=== PATIENT | female | born 1980 | race Caucasian/White ===

== ENCOUNTER 2019-08-16 14:59 | Emergency (ER) | payer MEDICAID, SELFPAY ==
[2019-03-14 15:58] VITALS: BMI 34.7
[2019-08-16 15:03] VITALS: BP 139/82; PULSE 81; RESP 16; TEMP 36.9; O2SAT 98; BMI 36.1
--- NOTE | 2019-08-16 15:05 | EKG12_ITS ---
Test Reason : CP Blood Pressure : / mmHG Vent. Rate : 074 BPM Atrial Rate : 074 BPM P-R Int : 164 ms QRS Dur : 094 ms QT Int : 384 ms P-R-T Axes : 052 049 023 degrees QTc Int : 426 ms Normal sinus rhythm Incomplete right bundle branch block Borderline ECG Confirmed by DAMIEN SANFORD, NGUYEN ([id number]), film and video editor ARYAN PARKS ([id number]) on 08/20/2019 10:52:31 AM Referred By: JEFF/STEFANY Confirmed By:NGUYEN QUEZADA MD
--- NOTE | 2019-08-16 15:05 | RAD_ITS ---
STUDY: X-RAY CHEST REASON FOR EXAM: Female, 39 years old. Chest pain. TECHNIQUE: PA and lateral views of the chest. COMPARISON: None. FINDINGS: The lungs are clear and expanded. Scattered calcified granulomas. There is no demonstrated pleural abnormality. Normal size heart. Normal mediastinum and craig. Normal visualized pulmonary arteries. Normal visualized aortic arch and descending thoracic aorta. There are mild degenerative changes of the visualized thoracic spine. Normal visualized ribs, clavicles, and shoulders. There is no demonstrated abnormality of the visualized soft tissue structures of the upper abdomen. RAD/Chest PA and Lateral IMPRESSION: Normal x-ray examination of the chest. Electronically Signed: Joshua Murcia, at 15:34 EDT , Service support ,
[2019-08-16 15:19] LABS: Absolute Lymphocyte Count 2.32 X10^3/uL (0.83-4.51); Absolute Neutrophil Count 7.7 X10^3/uL (2.0-7.7); Basophil# 0.04 X10^3/uL; Basophil% 0.4 % (0-1); Eosinophil# 0.14 X10^3/uL; Eosinophils% 1.3 % (0-5); Hematocrit 44.6 % (37-47); Hemoglobin 14.7 g/dL (12.0-15.0); Lymphocyte # 2.32 X10^3/ul (4.0); Lymphocyte % 21.1 % (19-41); Mean Corpuscular Hgb 29.4 pg (27.0-32.0); Mean Corpuscular Volume 89.2 fL (81-99); Mean Platelet Vol. 9.9 fl (6.2-12.0); Monocyte# 0.78 X10^3/uL; Monocyte% 7.1 % (0-10); NRBC Flagged by Analyzer 0 % (0-5); Neutrophil # 7.71 X10^3/uL (2.7-7.7); Neutrophil % 69.9 % (47-70); Platelet Count 251 K/mm3 (150-450); RBC Distribution Width CV 12.2 % (11.6-14.6); RBC Distribution Width SD 39.6 fl (35.1-43.9)
[2019-08-16 15:35] LABS: Anion Gap 6 (5-15); BUN 12 mg/dL (7-18); Calcium,Total 9.2 mg/dL (8.5-10.1); Chloride 105 mmol/L (98-107); EST Glomerular Filtration Rate 65 mL/min (>60); Est Glom Filt Rate - Afr Amer 79 mL/min (>60); Estimated Creatinine Clearance 70.71 ml/min; Glucose 137 mg/dL (74-106); Potassium 3.7 mmol/L (3.5-5.1); Sodium Level 137 mmol/L (136-145)
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
[2019-08-16] MEDS: Aspirin 81 MG TAB.CHEW 324 MG PO (16:32)
[2019-08-16 17:03] LABS: Bacteria 0 SEEN /hpf (None Seen); Mucous, Urine 0 SEEN /hpf (<or=2+); Red Blood Cells-Urine 0 SEEN /hpf (0-5)
[2019-08-16] MEDS: Lidocaine 5% Patch 1 PATCH TOPICAL (17:07)
[2019-08-16 17:16] LABS: Color, Urine Yellow (Yellow); Glucose, Dipstick Normal (Normal); Ketone-Dipstick Negative (Negative); Leukocyte Esterase-Dipstick 25 /ul (Negative); Nitrite-Dipstick Negative (Negative); Occult Blood-Urine Negative /ul (Negative); Protein-Dipstick Negative (Negative); Specific Gravity, Urine 1.015 (1.002-1.030); Urine Bilirubin Dipstick Negative (Negative); Urine Clarity Clear (Clear); Urine Urobilinogen Normal (Normal); Urine pH 6.5 (5.0 - 8.0)
[2019-08-16 17:23] LABS: Internal QC Validated? YES +Cl - CLEAR BKGD; Pregnancy, Urine Negative Negative
[2019-08-16 17:25] LABS: Squamous Epithelial Cells - UA 0-5 SEEN /hpf (5-10); White Blood Cells 0-5 SEEN /hpf (0-5)
[2019-08-16] MEDS: Ondansetron ODT 4 MG Tablet PO (17:32)
== END 2019-08-16 17:37 | disposition home or self-care (01) ==
PROVIDERS: Emergency Provider Emergency Medicine
DX: M54.9 Dorsalgia, unspecified (principal); R11.0 Nausea; F41.9 Anxiety disorder, unspecified; I25.10 Atherosclerotic heart disease of native coronary artery without angina pectoris; I25.2 Old myocardial infarction; F17.200 Nicotine dependence, unspecified, uncomplicated
CPT/HCPCS: 71046; 80048; 81001; 81025; 84484; 85025; 93005; 99285; A4216

== ENCOUNTER 2025-01-08 12:47 | Emergency (ER) | payer MEDICAID, SELFPAY ==
[2025-01-08 12:48] VITALS: BP 148/93; PULSE 82; RESP 14; TEMP 37.2; O2SAT 98; BMI 35.5
--- NOTE | 2025-01-08 13:34 | EKG12_ITS ---
Test Reason : NUMBNESS/TINGLING Blood Pressure : */* mmHG Vent. Rate : 58 BPM Atrial Rate : 58 BPM P-R Int : 172 ms QRS Dur : 94 ms QT Int : 424 ms P-R-T Axes : 12 -6 1 degrees QTcB Int : 416 ms Sinus bradycardia Incomplete right bundle branch block Borderline ECG Confirmed by DAMIEN SANFORD, NGUYEN ([id number]), primer expeditor and drier ARYAN PARKS ([id number]) on 01/09/2025 8:48:15 AM Referred By: Confirmed By: NGUYEN QUEZADA MD
--- NOTE | 2025-01-08 13:51 | EDS_ITS ---
HPI History of Present Illness Chief Complaint: Numb/Ting Informant: patient Onset/Context/Timing Onset: Weeks (2 weeks intermittent comes and goes.) Current Severity: Mild Maximum Severity: Mild Narrative Narrative: 45-year-old female past medical history of a prior ectopic and hypertension. Prior cholecystectomy and appendectomy. States for the last 2 weeks she has had intermittent right cheek tingling. No prior history. No trouble with her vision or speech. No trouble moving arms and legs. States at times she feels like she has head pressure. She also states that she also at times has a tingling in her right arm. Denies head trauma. No history of stroke or mini stroke. Prior similar symptoms: No Recent Illness/Hospitalization: No PFSH PFSH Medical History C SECTION x4 2 MISCARRIAGES TUBAL AND HEMORRHAGED Home Medications ?Medication ?Instructions ?Recorded ?Last Taken ?Type bupropion HCl 150 mg 24 hr tablet, 150 mg PO QAM #30 t abs 03/14/19 Unknown Rx extended release ondansetron 4 mg disintegrating 4 mg PO Q8H PRN PRN Na usea #10 tabs 08/16/19 Unknown Rx tablet Allergy/AdvReac Type Severity Reaction Status Date / Time No Known Allergies Allergy Verified 01/08/25 12:48 Family History Mother Diabetes Hypertension Father Hypertension Grandfather Heart disease Uncle Heart disease Aunt Breast cancer Bone cancer Surgical History H/O oophorectomy History of cholecystectomy History of appendectomy Social History Smoking Status: Unknown if ever smoked second hand exposure: Yes alcohol intake: current substance use type: does not use ROS ROS ED ROS Narrative Denies recent illness. Constitutional Constitutional ED: Denies chills or fever(s) Eyes Eyes: Denies blurry vision ENT ENT ED: Denies ear pain Cardiovascular Cardiovascular: Denies chest pain Respiratory/Chest Respiratory/Chest: Denies cough or dyspnea Gastrointestinal Gastrointestinal: Denies abdominal pain Genitourinary Genitourinary ED: Denies dysuria or hematuria Musculoskeletal Musculoskeletal: Denies arthralgias or back pain Integumentary Denies abscess or Abrasions Neurologic Neurologic: Denies headache(s) Psychiatric Psychiatric: Denies anxiety Endocrine Endocrinology: Denies cold intolerance Hematologic/Lymphatic Hematologic/Lymphatic: Reports none Allergic/Immunologic Allergic/Immunologic ED: Denies mouth swelling, tongue swelling or urticaria EXAM Physical Exam Narrative Exam Narrative: Well-appearing 45-year-old female. Vital signs stable afebrile. H EENT exam pupils round react to light. His motions are intact. Normal speech. No facial droop. Normal sensation bilaterally. Able to open close her eyes to light difficulty. Neck nontender no JVD. Lungs clear to auscultation bilaterally. Heart regular rate and rhythm rate about 80 no murmur. Chest wall and ribs nontender. Abdomen soft nontender. Moving all 4 extremities. 5 out of 5 electrical worker strength. Dorsi plantarflexion intact. No drift of either upper or lower extremities. [id number] and heel odonnell within normal limits. NIH score 0. Back nontender. Const Vital Signs: 01/08/25 12:48 Temperature 98.9 F Temperature Source Temporal Pulse Rate 82 Respiratory Rate 14 Blood Pressure 148/93 H Blood Pressure Mean 111 Pulse Ox 98 Oxygen Delivery Method Room Air Positive well nourished and well developed; Negative for cachectic, contractures or unkempt General Appearance ED: well developed and NAD; Negative for unkempt, cachectic, contractures, cyanotic, diaphoretic or pallor Nutritional Appearance: Negative for cachectic HEENT Reports moist mucous membranes Negative for trauma or tenderness Eyes PERRL and EOMs intact bilaterally General Eye ED: Negative for pale conjunctiva or scleral icterus Neck no lymphadenopathy, supple and no JVD General: Negative for tenderness Chest Wall inspection of chest normal and palpation of chest normal Resp normal respiratory effort and clear to auscultation bilaterally Effort and Inspection: Negative for retractions Auscultation: Negative for rales, rhonchi, wheezes or diminished lung sounds Cardio regular rate, regular rhythm, S1 normal heart sound, S2 normal heart sound and no murmurs Palpation: Negative for palpable S3 or palpable S4 Rate: Negative for bradycardia or tachycardic Rhythm: Negative for abnormal rhythm GI normal to inspection, nondistended, normoactive bowel sounds, non-tender, non-distended and no masses Palpation: soft; Negative for tender, guarding or rebound tenderness present Back/Spine no CVA tenderness General Back: Negative for CVA tenderness Cervical Spine: Negative for cervical spine tenderness Thoracic Spine / Upper Back: Negative for thoracic spinal tenderness or paraspinal muscle tenderness Lumbar Spine / Lower Back: Negative for lumbar spinal tenderness Extremity normal to inspection General Extremety ED: Negative for edema, tenderness or other findings General Extremity: Negative for edema or other findings Neuro oriented x3 and CN's II-XII intact bilaterally Sensorium / Orientation: alert; Negative for orientation impaired, lethargic or stuporous Motor Exam: strength 5/5 throughout Psych Negative for mental status grossly normal Appearance: Negative for unkempt Attitude: No agitated Mood & Affect: Negative for depressed or tearful Skin no rashes or lesions noted, no wounds and skin turgor normal General Skin Exam: elasticity normal; Negative for jaundice or pallor Lesions: No lesion noted Rashes: No rashes noted Trauma: Negative for abrasion Wounds: Negative for wounds noted MDM MDM MDM Narrative Medical decision making narrative: 45-year-old female subjective right-sided facial tingling. Exam benign. NIH 0. CAT scan and screening labs. Repeat exam at 3:28 PM patient is doing well. Repeat exam normal. No facial droop. Normal speech. Extraocular motions intact. Bilateral equal symmetrical 5 out of 5 electrical worker strength. Dorsi plantarflexion intact. No drift. Fingertip to nose within normal limits. Patient stood up ambulate out the room into the hallway without any difficulty no ataxia. We discussed all of her test results are comfortably discharged home to follow-up with her primary care physician if not improving. History & Record Review Discussion w/independent historian: Patient and Family Lab Data Attestation: I reviewed the patient's lab results. Lab results narrative: CBC shows a white count 8. H&H 12.7 and 40. Platelets 404. Electrolytes show sodium 136. Gap 11. Normal BUN of 11 creatinine 0.8. Glucose 108. Normal liver enzymes. CAT scan of the brain without contrast showed no acute abnormality as read by the radiologist. Chest x-ray normal. Labs: Laboratory Results - last 24 hr 01/08/25 13:15 WBC 8.6 RBC 5.09 Hgb 12.7 Hct 40.4 MCV 79.4 L MCH 25.0 L MCHC 31.4 L RDW Std Deviation 42.0 RDW Coeff of Jonah 14.6 Plt Count 404 MPV 10.5 Immature Gran % (Auto) 0.500 Neut % (Auto) 67.1 Lymph % (Auto) 23.1 [place] % (Auto) 7.9 Eos % (Auto) 0.9 Baso % (Auto) 0.5 Absolute Neuts (auto) 5.8 Absolute Lymphs (auto) 1.99 Nucleated RBC % 0 Sodium 136 Potassium 4.2 Chloride 103 Carbon Dioxide 21.8 Anion Gap 11 BUN 11 Creatinine 0.81 Estim Creat Clear Calc 104.59 Est GFR (MDRD) Non-Af 91 BUN/Creatinine Ratio 14.0 Glucose 108 H Calcium 9.5 Total Bilirubin 0.35 AST 16 ALT 12 Alkaline Phosphatase 93 Total Protein 7.9 Albumin 4.5 Globulin 3.4 Albumin/Globulin Ratio 1.3 Radiography Chest X-Ray - ED: 2 View, Read by ED Physician, Read by Radiologist, Heart, Lungs, Mediastinum, Bony Structures, No Acute Disease and Chronic Changes Diagnostic Testing: Clinical Impression(s) from Imaging Studies Brain CT 01/08/25 14:05 IMPRESSION: No acute abnormality is seen. Reading Location: [facility] Chest X-Ray 01/08/25 14:10 IMPRESSION: Stable examination. No acute abnormality is seen. Reading Location: [facility] Chest x-ray, 2 views, AP lateral, interpreted both by myself and radiology shows no acute abnormality. Normal cardiac silhouette. Normal mediastinum. Normal lung odonnell. Rhythm Strip Rhythm Strip: Sinus bradycardia Rate: 58 Ectopy: None EKG Initial EKG: Attestation: I personally reviewed and interpreted this EKG as follows: Interpretation: No Acute Injury Pattern and Sinus Bradycardia Comments: Sinus bradycardia rate of 58. No acute signs of MS or ischemia. Discharge Plan Triage Chief Complaint: Numb/Ting ED Provider: Jitendra Arana Dx/Rx/DC Orders Clinical Impression: Paresthesia Instructions: ED Paraesthesias Prescriptions: No Action bupropion HCl 150 mg tablet extended release 24 hr 150 mg PO QAM Qty: 30 12RF ondansetron 4 MG tablet 4 mg PO Q8H PRN PRN (Reason: Nausea) Qty: 10 0RF Primary Care Provider: ANNELISE FINCH Referrals: ANNELISE FINCH [Other] - 1 Week Activity Restrictions/Additional Instructions: All your blood work, CAT scan, EKG and chest x-ray look good today. No specific cause for your symptoms. If this does not improve follow-up your doctor for further evaluation. Print Language: [place] Disposition Disposition: Home, Self Care
[2025-01-08 13:57] LABS: Absolute Lymphocyte Count 1.99 X10^3/uL (0.83-4.51); Absolute Neutrophil Count 5.8 X10^3/uL (2.0-7.7); Basophil# 0.04 X10^3/uL; Basophil% 0.5 % (0-1); Eosinophil# 0.08 X10^3/uL; Eosinophils% 0.9 % (0-5); Hematocrit 40.4 % (37-47); Hemoglobin 12.7 g/dL (12.0-15.0); Lymphocyte # 1.99 X10^3/ul (0.83-4.51); Lymphocyte % 23.1 % (19-41); Mean Corp Hgb Conc 31.4 g/dL (32-36); Mean Corpuscular Volume 79.4 fL (81-99); Mean Platelet Vol. 10.5 fl (6.2-12.0); Monocyte# 0.68 X10^3/uL; Monocyte% 7.9 % (0-10); NRBC Flagged by Analyzer 0 % (0-5); Neutrophil # 5.79 X10^3/uL (2.7-7.7); Neutrophil % 67.1 % (47-70); Platelet Count 404 K/mm3 (150-450); RBC Distribution Width CV 14.6 % (11.6-14.6); Red Blood Count 5.09 M/mm3 (4.2-5.4); White Blood Count 8.6 K/mm3 (4.4-11.0)
--- NOTE | 2025-01-08 14:05 | CT_ITS ---
EXAM: BRAIN/HEAD WITHOUT CONTRAST CLINICAL HISTORY: R-FACIAL TINGLING COMPARISON: None TECHNIQUE: Multiple axial tomographic images were obtained without intravenous contrast administration. Coronal and sagittal reconstruction was obtained as well. FINDINGS: Normal gutierrez-white matter differentiation. No focal mass lesion is seen. No evidence of hydrocephalus. The posterior fossa is unremarkable. CT/Brain/Head without Contrast IMPRESSION: No acute abnormality is seen. Reading Location: [facility]
[2025-01-08 14:07] LABS: ALB/GLOB Ratio 1.3 RATIO (0.9-2.4); AST(SGOT) 16 U/L (<=31); Alanine Aminotransfer ALT/SGPT 12 U/L (<=34); Albumin, Serum 4.5 g/dL (3.5-5.0); Alkaline Phosphatase 93 U/L (35-104); Anion Gap 11 (5-15); BUN 11 mg/dL (4-19); Calcium,Total 9.5 mg/dL (7.6-11.0); Carbon Dioxide 21.8 mmol/L (21.0-32.0); Chloride 103 mmol/L (98-108); Creatinine, Serum 0.81 mg/dL (0.70-1.20); EST Glomerular Filtration Rate 91 (>60); Estimated Creatinine Clearance 104.59 ml/min (50-250); Globulin 3.4 g/dL (2.2-4.2); Glucose 108 mg/dL (70-99); Potassium 4.2 mmol/L (3.3-5.1); Protein, Total 7.9 g/dL (5.9-8.4); Sodium Level 136 mmol/L (133-145); Total Bilirubin 0.35 mg/dL (0.00-1.30)
--- NOTE | 2025-01-08 14:10 | RAD_ITS ---
PROCEDURE: CHEST PA AND LATERAL 01/08/2025 REASON FOR EXAM: WEAKNESS TECHNIQUE: Frontal and lateral views of the chest. COMPARISON: Comparison is made with prior study dated August 16, 2019. FINDINGS: The lungs are well expanded. The heart size is normal. The mediastinal contour is unremarkable. The lungs are clear. Degenerative changes are identified within the thoracic spine. RAD/Chest PA and Lateral IMPRESSION: Stable examination. No acute abnormality is seen. Reading Location: [facility]
[2025-01-08 15:49] VITALS: BP 97/75; PULSE 68; RESP 16; TEMP 37; O2SAT 97
== END 2025-01-08 15:50 | disposition home or self-care (01) ==
PROVIDERS: Emergency Provider Emergency Medicine; Visit Provider Emergency Medicine
DX: R20.2 Paresthesia of skin (principal); I10 Essential (primary) hypertension; Z90.49 Acquired absence of other specified parts of digestive tract
CPT/HCPCS: 70450; 71046; 80053; 85025; 93005; 99284; A4216